=== PATIENT | female | born 1955 | race Caucasian/White ===

== ENCOUNTER 2018-05-27 16:02 | Emergency (ER) | payer BC, SELFPAY ==
[2018-05-27 17:24] LABS: Bilirubin Negative (Negative); Blood, Urine Trace (Negative); Glucose, Urine (Dipstick) Negative (Negative); Leukocyte Negative (Negative); Nitrite Negative (Negative); Protein, Urine (Dipstick) Negative (Neg-Trace); Urobilinogen 0.2 mg/dL (0.2-1.0)
[2018-05-27 17:29] LABS: Amphetamine Not Detected (NotDetected); Barbiturates Screen Not Detected (NotDetected); Benzodiazepine Screen Not Detected (NotDetected); Cocaine Metabolite Screen Not Detected (NotDetected); Medtox Control Line Valid? VALID (VALID); Methadone Not Detected (NotDetected); Methamphetamine Not Detected (NotDetected); Opiate Screen Not Detected (NotDetected); Oxycodone Screen Not Detected (NotDetected); Phencyclidine (PCP) Not Detected (NotDetected); THC/Cannabinoid Screen Not Detected (NotDetected); Tricyclic Screen Not Detected (NotDetected)
[2018-05-27 17:31] LABS: Clarity Hazy (Clear)
[2018-05-27 17:41] LABS: ALT (SGPT) 7 U/L (8-55); AST (SGOT) 21 U/L (5-34); Albumin 3.7 g/dL (3.4-4.8); Alkaline Phosphatase 146 U/L (40-150); Anion Gap 16 mmol/L (10-20); BUN (Urea Nitrogen) 8 mg/dL (9.8-20.1); Bacteria/HPF Rare-Few HPF (None Seen); Bilirubin, Total 0.5 mg/dL (0.2-1.2); Calc. Creatinine Clearance 0 mL/min (70-130); Calcium 9.3 mg/dL (7.8-10.44); Carbon Dioxide 23 mmol/L (23-31); Chloride 106 mmol/L (98-107); Estimated GFR-MDRD 72; Globulin 3.6 g/dL (2.4-3.5); Glucose 124 mg/dL (80-115); Potassium 3.9 mmol/L (3.5-5.1); Protein, Total 7.3 g/dL (6.0-8.3); RBC/HPF 0-3 HPF (0-3); Sodium 141 mmol/L (136-145); Squamous Epithelial 0-3 HPF (0-3); WBC/HPF None Seen HPF (0-3)
[2018-05-27 17:43] LABS: Acetaminophen Less than 6.0 mcg/mL (10.0-30.0); Alcohol Less than 10 mg/dL (Less than 10); Lipase 44 U/L (8-78); Salicylate Less than 8.0 mg/dL (15.0-30.0)
[2018-05-27 17:52] LABS: Band 3 % (5-11); Hemoglobin 13.6 g/dL (12.0-16.0); Lymphocytes 19 % (21-51); MDiff Complete? YES; Mean Corpuscular HGB CONC 31.9 g/dL (32.0-36.0); Mean Corpuscular Hemoglobin 28.6 pg (27.0-31.0); Mean Corpuscular Volume 89.9 fL (78.0-98.0); Mean Platelet Volume 7.5 fL (7.4-10.4); Monocytes 3 % (0-10); Neutrophil 75 % (42-75); PLT Morphology Comment Appears Adequate; Platelet Count 286 thou/uL (130-400); RBC Distribution Width 12.1 % (11.5-14.5); Red Blood Cell (RBC) Count 4.75 mill/uL (4.20-5.40); White Blood Cell (WBC) Count 11.4 thou/uL (4.8-10.8)
--- NOTE | 2018-05-27 18:28 | CT ---
NONCONTRAST CT HEAD: 05/27/2018 HISTORY: Altered mental status. COMPARISON: None available. FINDINGS: A few scattered, subtle, low density areas seen within the periventricular white matter, which are no nspecific, but likely reflective of minimal chronic small vessel ischemic changes. There is a low de nsity focus at the inferior aspect of the right basal ganglia, which may represent a lacunar infarcti on versus dilated perivascular space. There is no evidence of an acute cortical infarction, hemorrha ge, mass effect, or midline shift. The ventricular system is normal in size, shape, and position. The visualized paranasal sinuses and mastoid air cells are clear. The calvarial structures are intac t. IMPRESSION: 1. No acute intracranial abnormalities demonstrated. 2. Mild chronic small vessel ischemic changes and cerebral volume loss. POS: [facility]
--- NOTE | 2018-05-27 18:30 | RAD ---
CHEST PA AND LATERAL: HISTORY: A 63-year-old female with a history of altered mental status. FINDINGS: Heart size is normal. Lungs are clear. No confluent pneumonia, overt edema, or pleural effusion. IMPRESSION: No acute intrathoracic disease. POS: [facility]
== END 2018-05-27 21:00 | disposition home or self-care (01) ==
LOC: MADERS 16:02
DX: F30.9 Manic episode, unspecified (principal); F09 Unspecified mental disorder due to known physiological condition; I10 Essential (primary) hypertension; E78.5 Hyperlipidemia, unspecified; F17.210 Nicotine dependence, cigarettes, uncomplicated; Z79.899 Other long term (current) drug therapy
CPT/HCPCS: 70450; 71046; 80053; 80306; 80307; 81003; 81015; 83605; 83690; 84443; 84484; 85025; 93005; 94760